=== PATIENT | male | born 1935 | race Caucasian/White ===

== ENCOUNTER → 2018-12-08 | Outpatient (CLI) | payer MEDICARE, BC ==
[~2018-12-08] MED LIST: ACETAMINOPHEN325 M1 PO; ASPIRIN EC81 M1 PO; ASPIRIN325 PO; BACTRIM DS TAB1 EACH PO; CARVEDILOL6.25 MG PO; CIPRO500 M1 PO; CIPROFLOXACIN500 M1 PO; COZAAR 25 MG TA25 MG PO; FLAGYL500 MG PO; FLOMAX0.4 MG PO; HYDROCODONE-AP1 EAC6 PO; HYDROXYZINE HCL25 M2 PO; IMDUR 30 MG TAB30 M1 PO; JANUMET 50-5001 EACH PO; JANUVIA25 MG; LISINOPRIL2.5 MG PO; NITROQUICK SL; NITROQUICK0.4 MG SL; NORCO 5-325 TA1 EACH PO; PLAVIX 75 MG TA75 MG PO; PREVACID OR; PROTONIX40 M1 PO; TIMOLOL MA0.5 %/5 M2 OPHTHALMIC; TIMOLOL OP; TRAMADOL 50 MG50 MG PO; TRIAMCINOLONE A80 G2 TOP; ZOCOR 20 MG TAB20 M1 PO
== END ==
LOC: M.RAD 11:02
DX: J44.9 Chronic obstructive pulmonary disease, unspecified (principal); G89.29 Other chronic pain; I25.10 Atherosclerotic heart disease of native coronary artery without angina pectoris